=== PATIENT | male | born 1955 | race Caucasian/White ===

== ENCOUNTER 2020-08-03 20:57 | Emergency (ER) | payer OTHER ==
[~2020-08-03] VITALS: Ht 165.1 cm; Wt 80.7 kg
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
--- NOTE | 2020-08-03 20:58 | NUR ---
BIB [facility] ([facility]) TO ER BED 8
[2020-08-03 21:02] VITALS: BP 167/80
[2020-08-03 23:00] VITALS: BP 151/77
[2020-08-03] MEDS ORDERED: ACETAMINOPHEN EXTRA STRENGTH 500 MG TAB PO ONE (23:45)
--- NOTE | 2020-08-04 | NUR ---
Patient ambulated to bathroom w steady gait.
--- NOTE | 2020-08-04 00:10 | NUR ---
Patient taken to CT via gurney.
[2020-08-04] MEDS ORDERED: TOBR5SOL17 LEFT EYE (01:52)
--- NOTE | 2020-08-04 02:46 | NUR ---
d/c with [facility]. d/c education given. opportunity to ask questions given and answered. rx of tobramycin given.
== END 2020-08-04 02:52 | disposition home or self-care (01) ==
LOC: MED 20:57
DX: S01.412A Laceration without foreign body of left cheek and temporomandibular area, initial encounter (principal); I10 Essential (primary) hypertension; Z79.899 Other long term (current) drug therapy; Z86.73 Personal history of transient ischemic attack (TIA), and cerebral infarction without residual deficits; Y04.2XXA Assault by strike against or bumped into by another person, initial encounter; Y93.89 Activity, other specified; Y92.89 Other specified places as the place of occurrence of the external cause; Y99.8 Other external cause status
CPT/HCPCS: 12013; 70450; 70486; 72125; 99285